=== PATIENT | female | born 2000 | race Caucasian/White ===

== ENCOUNTER 2024-07-13 17:52 | Emergency (ER) | payer OTHER, SELFPAY ==
[2024-07-13 17:54] VITALS: BP 120/83; PULSE 111; RESP 20; TEMP 36.4; O2SAT 99; BMI 25.7
[2024-07-13 18:56] LABS: MANUAL DIFF FLAG NO
[2024-07-13 19:09] LABS: Basophils Percent Auto 0.5 % (0-2); Eosinophils Absolute Auto 0.1 X10*3/uL (0.0-0.4); Hemoglobin 15.2 g/dl (12.0-16.0); Imm Gran Abs Auto 0.02 X10*3/uL (0.00-0.03); Imm Gran Pct Auto 0.3 % (0.0-0.4); Lymphocytes Absolute Auto 1.7 X10*3/uL (1.2-4.9); Mean Corpuscular HGB Conc 34.5 g/dl (31.0-35.0); Mean Corpuscular Hemoglobin 30.8 pg (27.0-33.0); Mean Corpuscular Volume 89.1 fL (80.0-98.0); Mean Platelet Volume 10.2 fL (9.4-12.3); Monocytes Absolute Auto 0.3 X10*3/uL (0.1-1.2); Monocytes Percent Auto 5.9 % (2-11); Neutrophils Absolute Auto 3.6 x10*3/uL (2.0-8.3); Neutrophils Percent Auto 62.3 % (45-73); Platelet Count 288 X10*3/uL (160-400); Red Blood Count 4.94 X10*6/uL (4.20-5.50); Red Cell Distribution Width 12.8 % (11.0-16.0); White Blood Count 5.7 X10*3/uL (4.8-10.8)
[2024-07-13 19:21] LABS: Alanine Aminotransferase 29 U/L (0-31); Albumin Level 4.5 g/dL (3.5-5.0); Alkaline Phosphatase 93 U/L (39-117); Anion Gap 10 (12-20); Aspartate Amino Transferase 26 U/L (5-31); Bilirubin Total 0.4 mg/dL (0.0-1.0); Blood Urea Nitrogen 11 mg/dL (9-16); Calcium 8.6 mg/dL (8.4-10.2); Carbon Dioxide 26 mmol/L (22-29); Chloride 112 mmol/L (96-108); Creatinine Clr Calc Pharmacy 101.1; Estimated Glomerular Filt Rate > 60; Ethanol 274 mg/dL; Glucose Random 97 mg/dL (60-115); Magnesium 2.3 mg/dL (1.6-2.6); Potassium 3.9 mmol/L (3.3-5.1); Sodium 144 mmol/L (135-145); Total Protein 7.4 g/dL (6.5-8.0)
[2024-07-13 19:26] LABS: HCG Quantitative < 2 mIU/mL
[2024-07-13 20:28] LABS: Appearance Urine Clear; Color Urine Yellow; Glucose Urine UA Negative (Negative); Leukocyte Esterase Urine Negative (Negative); Nitrite Urine Negative (Negative); PH 6.5 (5.0-9.0); Urine Blood Negative (Negative); Urine Ketones Negative (Negative); Urine Protein Negative (Neg-Trace)
[2024-07-13 20:37] LABS: Amphetamine Screen Urine Not Detected (Not Detect); Barbiturates, Urine Not Detected (Not Detect); Benzodiazepines Screen Urine Not Detected (Not Detect); Buprenorphine Scr Not Detected (Not Detect); Cannabinoid Screen Urine POSITIVE (Not Detect); Cocaine Screen Urine Not Detected (Not Detect); Fentanyl, urine Not Detected (Not Detect); Methadone Screen, Urine Not Detected (Not Detect); Opiate Screen Urine Not Detected (Not Detect); Oxycodone Screen Urine Not Detected (Not Detect); Phencyclidine Screen Urine Not Detected (Not Detect)
--- NOTE | 2024-07-13 21:33 | ED.PSYCH ---
HPI - Psych General Chief Complaint: Psychiatric Symptoms Stated Complaint: depressed, crisis Time Seen by Provider: 07/13/24 18:54 Source: patient Limitations: no limitations History of Present Illness ED Provider: Connie Harrison PA-C HPI Narrative: 24-year-old female presents with SI. History limited as patient is hostile at times, and is intoxicated. She is not verbalize a specific plan for self-harm. She does say she is increasingly depressed and that she feels sad all the time . She also admits she has been drinking alcohol more frequently. Her father relate to nursing staff that there were recent medication changes within the past few weeks, and that her behaviors have changed since. Related Data Allergies Allergy/AdvReac Type Severity Reaction Status Date / Time Unable to Assess Allergy Verified 07/13/24 18:07 Review of Systems Review of Systems: Unable to obtain as the patient was not wanting to engage in conversation so as to obtain detailed history Yes all other systems are reviewed and are negative [facility] Past Medical History Attestation statement: The following information was validated with the patient. Social History Social History Alcohol intake: current Alcohol intake frequency: a few times a week Alcohol type: beer and hard liquor Smoked in Last 30 Days: Yes Substance Use Type: Marijuana Advance Directives: No Advance Directives Information Provided: No Do you have a plan to hurt others: No Plan Physical Exam Vital Signs: Vital Signs: Last Vital Signs Temp 97.6 F 07/13/24 17:54 Pulse 111 H 07/13/24 17:54 Resp 20 07/13/24 17:54 BP 120/83 07/13/24 17:54 Pulse Ox 99 07/13/24 17:54 O2 Del Method Room Air 07/13/24 17:54 BMI result Body Mass Index 25.7 Const: Other: awake Orientation/consciousness: patient oriented x3 Resp: Effort & Inspection: normal respiratory effort Cardio: Other: normal peripheral perfusion Skin: Other: warm dry no rash Neuro: General: patient oriented x3, gait normal, no focal motor deficits and CN's II-XI intact bilaterally Psych: Other: hostile at times, intoxicated Medical Decision Making Medical Decision Making MDM Narrative: 24-year-old female presents with SI. History limited as patient is hostile at times, and is intoxicated. She is not verbalize a specific plan for self-harm. She does say she is increasingly depressed and that she feels sad all the time . She also admits she has been drinking alcohol more frequently. Her father relate to nursing staff that there were recent medication changes within the past few weeks, and that her behaviors have changed since. problem: Depression, alcohol abuse History: Per patient which is limited I have considered the following differential diagnoses: SI, HI, decompensated psychiatric illness, drug / alcohol intoxication Plan: Once the patient was sober she will be referred to the care team. We will be screening basic labs, serum ethanol and U tox I have independently reviewed the following tests: Labs: No leukocytosis, not anemic, no electrolyte abnormality, not , ethanol 274, drug screen positive for marijuana Lab Data 07/13/24 18:48 07/13/24 18:48 Labs: Lab Results 07/13/24 07/13/24 Range/Units 18:48 20:12 WBC 5.7 (4.8-10.8) X10*3/uL RBC 4.94 (4.20-5.50) X10*6/uL Hgb 15.2 (12.0-16.0) g/dl Hct 44.0 (37.0-47.0) % MCV 89.1 (80.0-98.0) fL MCH 30.8 (27.0-33.0) pg MCHC 34.5 (31.0-35.0) g/dl RDW 12.8 (11.0-16.0) % Plt Count 288 (160-400) X10*3/uL MPV 10.2 (9.4-12.3) fL Immature Gran % (Auto) 0.3 (0.0-0.4) % Neut % (Auto) 62.3 (45-73) % Lymph % (Auto) 30.0 (20-40) % [place] % (Auto) 5.9 (2-11) % Eos % (Auto) 1.0 (0-4) % Baso % (Auto) 0.5 (0-2) % Lymph # (Auto) 1.7 (1.2-4.9) X10*3/uL [place] # (Auto) 0.3 (0.1-1.2) X10*3/uL Eos # (Auto) 0.1 (0.0-0.4) X10*3/uL Baso # (Auto) 0.0 (0.0-0.2) X10*3/uL Abs Immat Gran (auto) 0.02 (0.00-0.03) X10*3/uL Absolute Neuts (auto) 3.6 (2.0-8.3) x10*3/uL Absolute Nucleated RBC 0.000 (0.0-0.012) X10*3/uL Nucleated RBC % (auto) 0.0 (0.0-0.2) /100WBC Sodium 144 (135-145) mmol/L Potassium 3.9 (3.3-5.1) mmol/L Chloride 112 H (96-108) mmol/L Carbon Dioxide 26 (22-29) mmol/L Anion Gap 10 L (12-20) BUN 11 (9-16) mg/dL Creatinine 0.82 (0.5-1.4) mg/dL Estim Creat Clear Calc 101.1 Estimated GFR > 60 Random Glucose 97 (60-115) mg/dL Calcium 8.6 (8.4-10.2) mg/dL Magnesium 2.3 (1.6-2.6) mg/dL Total Bilirubin 0.4 (0.0-1.0) mg/dL AST 26 (5-31) U/L ALT 29 (0-31) U/L Alkaline Phosphatase 93 (39-117) U/L Total Protein 7.4 (6.5-8.0) g/dL Albumin 4.5 (3.5-5.0) g/dL Beta HCG, Quant < 2 mIU/mL Urine Color Yellow Urine Appearance Clear Urine pH 6.5 (5.0-9.0) Ur Specific [place] 1.020 (1.005-1.025) Urine Protein Negative (Neg-Trace) mg/dL Urine Glucose (UA) Negative (Negative) mg/dL Urine Ketones Negative (Negative) mg/dL Urine Blood Negative (Negative) Urine Nitrite Negative (Negative) Ur Leukocyte Esterase Negative (Negative) Urine Opiates Screen Not Detected (Not Detect) Ur Buprenorphine Scrn Not Detected (Not Detect) ng/mL Ur Oxycodone Screen Not Detected (Not Detect) ng/mL Urine Methadone Screen Not Detected (Not Detect) ng/mL Urine Fentanyl Screen Not Detected (Not Detect) Ur Barbiturates Screen Not Detected (Not Detect) Ur Phencyclidine Scrn Not Detected (Not Detect) Ur Amphetamines Screen Not Detected (Not Detect) U Benzodiazepines Scrn Not Detected (Not Detect) Urine Cocaine Screen Not Detected (Not Detect) U Marijuana (THC) Screen POSITIVE H (Not Detect) Ethyl Alcohol 274 mg/dL Discharge Plan Discharge Clinical Impression: Suicidal ideation, Alcohol intoxication Patient Disposition: Still a Patient Interventions: [place]-Suicide Risk Severity Scale Last Done: 07/13/24 18:30 Print Language: Mongolian
[2024-07-14 00:14] VITALS: BP 103/61; PULSE 70; RESP 16; TEMP 36.7; O2SAT 98
--- NOTE | 2024-07-14 07:26 | PC.NURSE ---
ASSUMED CARE OF THIS PT, SLEEPING IN NAD AT THIS TIME, RESP EVEN, NONLABOURED.
[2024-07-14 11:29] VITALS: BP 126/74; PULSE 67; RESP 14; TEMP 36.2; O2SAT 100
[2024-07-14 11:39] VITALS: BP 126/74; PULSE 67; RESP 14; TEMP 36.2; O2SAT 100
--- NOTE | 2024-07-14 11:47 | MHC.CARE ---
Pt placed on alert and a follow up was requested of JAMES
--- NOTE | 2024-07-14 11:57 | MHC.CARE ---
[facility] referral complete
--- NOTE | 2024-07-14 13:48 | MHC.RECOVRN ---
Met with pt in [facility]3 after being cleared by CARE Team to discuss alcohol use. Pt sitting in bed, awake, alert, easily engages in conversation. Pt reports for the past month she has been drinking 4-5 vodka nips (in mixed drinks) most days of the week. Prior to that, pt reports she had been drinking approx once per month. Pt reports family hx AUD. Denies history of withdrawal. Reports dad is supportive. Discussed recovery resources and supports. Provided pt with written resources including information on inpatient and outpatient treatment, TOM, harm reduction, recovery coaching, as well as t/w contact information. Pt plans to review resources and reach out to t/w if needed. Pt declines referrals at this tme.
== END 2024-07-14 11:45 | disposition home or self-care (01) ==
PROVIDERS: Physician Assistant; Emergency Provider Emergency Medicine; PCP Internal Medicine
DX: F10.120 Alcohol abuse with intoxication, uncomplicated (principal); Y90.8 Blood alcohol level of 240 mg/100 ml or more; F32.A Depression, unspecified; R45.851 Suicidal ideations; F12.90 Cannabis use, unspecified, uncomplicated
CPT/HCPCS: 36415; 80053; 80307; 81003; 83735; 84702; 85025; 99284; 99285; S9485

== ENCOUNTER 2025-03-27 21:20 | Emergency (ER) | payer OTHER, SELFPAY ==
[2025-03-27 21:24] VITALS: BP 135/86; PULSE 118; RESP 20; TEMP 36.4; O2SAT 97; BMI 29.1
--- NOTE | 2025-03-27 21:41 | ED_ITS ---
HPI - Alcohol General Chief Complaint: ETOH/Substance Use Stated Complaint: ETOH Time Seen by Provider: 03/27/25 22:10 Source: patient and family ( Father) Mode of arrival: ambulatory Limitations: no limitations History of Present Illness ED Provider: DR. Bhatti HPI narrative: Patient is a 24-year-old female presenting to the ED by private vehicle with her father. Patient is clinically intoxicated. Patient's father reports patient came home from a constitution party intoxicated this evening and during an argument about her intoxication the patient reportedly began making statements of self-harm, describing statements of cutting herself in a bathtub. Patient adamantly denies these statements, however does have a psychiatry history, previous history of self-harm, and is clinically intoxicated. patient is agreeable to stay in the ED for further evaluation who in she is more sober and after medical clearance. Related Data Home Medications ?Medication ?Instructions ?Recorded ?Confirmed escitalopram oxalate 20 mg tablet 20 mg PO DAILY 07/1407/14/24 Allergies Allergy/AdvReac Type Severity Reaction Status Date / Time No Known Allergies Allergy Verified 03/27/25 21:31 Review of Systems 2 Review of Systems: All other systems are reviewed and are negative Constitutional: Reports as per HPI and Reports no additional constitutional complaints Eyes: Reports as per HPI and Reports no additional eye complaints Reports system reviewed and no additional complaints, except as documented Cardiovascular: Reports as per HPI and Reports no additional cardiovascular complaints Respiratory: Reports as per HPI and Reports no additional respiratory complaints Gastrointestinal: Reports as per HPI and Reports no additional gastrointestinal complaints Genitourinary: Reports no additional female genitourinary complaints Musculoskeletal: Reports no additional musculoskeletal complaints Skin/Breast: Reports system reviewed and no additional complaints, except as docu Psychiatric: Reports no additional psychiatric complaints Endocrine: Reports no additional endocrine complaints Hematologic/Lymphatic: Reports no additional hematologic/lymphatic complaints Allergic/Immunologic: Reports no additional allergic/immunologic complaints Reports system reviewed and no additional complaints, except as documented and Reports Abnormal speech present [facility] Social History Social History Alcohol intake: current Alcohol intake frequency: a few times a week Alcohol type: beer and hard liquor Substance Use Type: Marijuana Advance Directives: No Advance Directives Information Provided: No Physical Exam ED Vital Signs: Vital Signs - 24 hr 03/27/25 21:24 03/28/25 00:30 03/28/25 08:46 Temperature 97.6 F 97.5 F 96.3 F L Pulse Rate 118 H 108 H 89 Respiratory Rate 20 20 16 Blood Pressure 135/86 113/66 120/82 Pulse Oximetry 97 98 97 Oxygen Delivery Method Room Air Room Air Room Air BMI result Body Mass Index 29.1 Vital signs have been reviewed and appear to be correct. Blood pressure elevated. Heart rate elevated. Respiratory rate normal. Temperature normal. Oxygen saturation normal. Appearance: Intoxicated, alcohol on breath, Alert. Oriented X3. No acute distress. Head: Normal external exam. Normocephalic. Atraumatic. No Brennan signs noted. No raccoon eyes noted Eyes: PERRLA. EOMI. Conjunctiva and sclera normal. Eyelids normal. ENT: TM's Normal. Pharynx normal. Uvula midline. Moist mucous membranes. No trismus noted. No drooling noted. No muffled voice noted. Neck: Normal inspection. Neck supple. FROM. No adenopathy. Thyroid Normal. No meningeal signs. No neck mass noted. CVS: Normal heart rate and rhythm. Heart sound normal. No murmurs noted. Pulses normal throughout. Respiratory: No respiratory distress. Painless inspiration. Breath sounds normal. No wheezes/rales/rhonchi noted. Chest nontender. No accessory muscle usage noted or decreased air movement noted. Abdomen: Soft and nontender. Bowel sounds normal in all 4 quadrants. No distention noted. No organomegaly noted. No visible injury noted. Back: No CVA tenderness. Full range of motion noted. Skin: Skin warm and dry. Normal skin color. Normal skin turgor. No rashes/lesions/lacerations noted. Extremities: No lower extremity edema. Extremities exhibit normal range of motion. Extremities nontender. Neuro: Oriented X 3. Cranial nerve exam: II-XII are grossly intact No motor deficit. No sensory deficit. Reflexes normal. Course Course Course Narrative: 9:41 PM 03/27/2025 (Clifton BELLO): Rapid medical examination performed, full details of HPI, MDM, care plan and disposition deferred to primary provider. came in with her father for evaluation of suicidal statement. Reevaluation(s) Reevaluation #1: 24-year-old female intoxicated with SI statement, will will start physician observation, await for patient's sobriety and care team input, patient is medically cleared now. Elevated LFTs likely secondary to alcohol hepatitis. Time: 00:30 Reevaluation #2: Patient was seen by care team Niya who feels as though patient is appropriate for discharge home. Educated patient on diagnosis and treatment plan, answered all question, patient verbalizes understanding. At this time patient will be discharged home, advised to return with new or worsening symptoms. Educated on worrisome signs and symptoms and when to return. At this time I feel comfortable discharge home. At time of discharge she is not SI or HI. Time: 09:41 Medical Decision Making Differential Diagnosis Differential Diagnoses: The differential diagnosis associated with the presentation includes ( Medical clearance, SI, HI, hallucination, electrolyte derangement, severe anemia, alcohol intoxication.) Admission/Observation Consideration of admission/observation: Escalation of care including admission/observation considered Lab Data MDM Lab Attestation statement: I reviewed the patient's lab results. 03/27/25 22:22 03/27/25 22:22 Labs: Lab Results 03/27/25 03/27/25 Range/Units 22:22 22:42 WBC 9.0 (4.8-10.8) X10*3/uL RBC 5.15 (4.20-5.50) X10*6/uL Hgb 15.8 (12.0-16.0) g/dl Hct 45.7 (37.0-47.0) % MCV 88.7 (80.0-98.0) fL MCH 30.7 (27.0-33.0) pg MCHC 34.6 (31.0-35.0) g/dl RDW 13.9 (11.0-16.0) % Plt Count 326 (160-400) X10*3/uL MPV 9.8 (9.4-12.3) fL Immature Gran % (Auto) 0.2 (0.0-0.4) % Neut % (Auto) 66.4 (45-73) % Lymph % (Auto) 24.1 (20-40) % [place] % (Auto) 8.2 (2-11) % Eos % (Auto) 0.4 (0-4) % Baso % (Auto) 0.7 (0-2) % Lymph # (Auto) 2.2 (1.2-4.9) X10*3/uL [place] # (Auto) 0.7 (0.1-1.2) X10*3/uL Eos # (Auto) 0.0 (0.0-0.4) X10*3/uL Baso # (Auto) 0.1 (0.0-0.2) X10*3/uL Abs Immat Gran (auto) 0.02 (0.00-0.03) X10*3/uL Absolute Neuts (auto) 5.9 (2.0-8.3) x10*3/uL Absolute Nucleated RBC 0.000 (0.0-0.012) X10*3/uL Nucleated RBC % (auto) 0.0 (0.0-0.2) /100WBC Sodium 146 H (135-145) mmol/L Potassium 4.3 (3.3-5.1) mmol/L Chloride 110 H (96-108) mmol/L Carbon Dioxide 26 (22-29) mmol/L Anion Gap 14 (12-20) BUN 9 (9-16) mg/dL Creatinine 0.76 (0.5-1.4) mg/dL Estim Creat Clear Calc 119.7 Estimated GFR > 60 Random Glucose 102 (60-115) mg/dL Calcium 8.8 (8.4-10.2) mg/dL Magnesium 2.1 (1.6-2.6) mg/dL Total Bilirubin 0.3 (0.0-1.0) mg/dL Direct Bilirubin 0.1 (0.0-0.5) mg/dL AST 63 H (5-31) U/L ALT 120 H (0-31) U/L Alkaline Phosphatase 120 H (39-117) U/L Total Protein 8.1 H (6.5-8.0) g/dL Albumin 5.1 H (3.5-5.0) g/dL Beta HCG, Quant < 2 mIU/mL Urine Color Yellow Urine Appearance Clear Urine pH 6.5 (5.0-9.0) Ur Specific [place] <= 1.005 (1.005-1.025) Urine Protein Negative (Neg-Trace) mg/dL Urine Glucose (UA) Negative (Negative) mg/dL Urine Ketones Negative (Negative) mg/dL Urine Blood Trace H (Negative) Urine Nitrite Negative (Negative) Ur Leukocyte Esterase Small (1+) H (Negative) Urine RBC 0-2 (0-2) /HPF Urine WBC 0-5 (0-5) /HPF Ur Squamous Epith Cells 3-5 (0-2) /HPF Urine Bacteria Trace (None Seen) Hyaline Casts 0-2 (0-2) /LPF Salicylates < 5.0 L (15-30) mg/dL Urine Opiates Screen Not Detected (Not Detect) Ur Buprenorphine Scrn Not Detected (Not Detect) ng/mL Ur Oxycodone Screen Not Detected (Not Detect) ng/mL Urine Methadone Screen Not Detected (Not Detect) ng/mL Urine Fentanyl Screen Not Detected (Not Detect) Acetaminophen < 3 (<30) mcg/mL Ur Barbiturates Screen Not Detected (Not Detect) Ur Phencyclidine Scrn Not Detected (Not Detect) Ur Amphetamines Screen Not Detected (Not Detect) U Benzodiazepines Scrn Not Detected (Not Detect) Urine Cocaine Screen Not Detected (Not Detect) U Marijuana (THC) Screen POSITIVE H (Not Detect) Ethyl Alcohol 351 H* mg/dL Critical Care Time Critical Care Time Critical Care Time: No Discharge Plan Discharge Clinical Impression: Alcoholic intoxication, Feeling suicidal Patient Disposition: Home, Self-Care Instructions: Abuse of Alcohol (DC) Additional Instructions: You were seen in our Emergency Department today for treatment of a behavioral health issue. It is important after your visit that you follow up with either your behavioral health provider or a primary care doctor within 7 days.? If you have trouble finding a therapist you can reach out to [address] [phone] The National Suicide and Crisis Lifeline can be reached 7 days a week 24 hours a day.? Call 988 to speak with someone.? Return for any worsening symptoms or concerns such as thoughts of self harm or harm to others. Please call 911 if you feel your mental health is worsening.? Prescriptions: No Action escitalopram oxalate 20 mg tablet 20 mg PO DAILY Referrals: Treva Farias MD [Primary Care Provider, Internal Medicine] Print Language: Unable To Collect
[2025-03-27 22:28] LABS: MANUAL DIFF FLAG NO
[2025-03-27 22:29] LABS: Hematocrit 45.7 % (37.0-47.0); Hemoglobin 15.8 g/dl (12.0-16.0); Imm Gran Abs Auto 0.02 X10*3/uL (0.00-0.03); Imm Gran Pct Auto 0.2 % (0.0-0.4); Lymphocytes Absolute Auto 2.2 X10*3/uL (1.2-4.9); Mean Corpuscular HGB Conc 34.6 g/dl (31.0-35.0); Mean Corpuscular Hemoglobin 30.7 pg (27.0-33.0); Mean Corpuscular Volume 88.7 fL (80.0-98.0); NRBC Abs Auto 0.000 X10*3/uL (0.0-0.012); NRBC Pct Auto 0.0 /100WBC (0.0-0.2); Platelet Count 326 X10*3/uL (160-400); Red Blood Count 5.15 X10*6/uL (4.20-5.50); White Blood Count 9.0 X10*3/uL (4.8-10.8)
[2025-03-27 22:44] LABS: Acetaminophen LAB < 3 mcg/mL (<30); Salicylate < 5.0 mg/dL (15-30)
[2025-03-27 22:50] LABS: Alanine Aminotransferase 120 U/L (0-31); Albumin Level 5.1 g/dL (3.5-5.0); Alkaline Phosphatase 120 U/L (39-117); Anion Gap 14 (12-20); Aspartate Amino Transferase 63 U/L (5-31); Blood Urea Nitrogen 9 mg/dL (9-16); Calcium 8.8 mg/dL (8.4-10.2); Carbon Dioxide 26 mmol/L (22-29); Chloride 110 mmol/L (96-108); Creatinine Clr Calc Pharmacy 119.7; Estimated Glomerular Filt Rate > 60; Magnesium 2.1 mg/dL (1.6-2.6); Potassium 4.3 mmol/L (3.3-5.1); Sodium 146 mmol/L (135-145); Total Protein 8.1 g/dL (6.5-8.0)
[2025-03-27 23:05] LABS: Appearance Urine Clear; Glucose Urine UA Negative (Negative); PH 6.5 (5.0-9.0); Specific Gravity - Urine <= 1.005 (1.005-1.025); UMIC TRIGGER UACC YES
[2025-03-27 23:07] LABS: Cannabinoid Screen Urine POSITIVE (Not Detect)
[2025-03-27 23:18] LABS: UACC Culture Trigger YES
[2025-03-28 00:30] VITALS: BP 113/66; PULSE 108; RESP 20; TEMP 36.4; O2SAT 98
[2025-03-28 08:46] VITALS: BP 120/82; PULSE 89; RESP 16; TEMP 35.7; O2SAT 97
--- NOTE | 2025-03-28 08:49 | PC.NURSE ---
Patient stating she wants to go home. Patient made aware that she needs to see Care Team to be evaluated. Patient replies understanding of care plan. Patient resting quietly. medical assistant float present. Safety measures in place.
--- NOTE | 2025-03-28 10:05 | MHC.CARE ---
Pt does not meet the criteria for a higher level of care or present as an imminent risk. Pt was provided with resources on the [facility] and [facility] from the [facility] came to speak with Pt in regard to Naltrexone and AA meetings. ED provider in agreement.
[2025-03-28 10:24] VITALS: BP 120/82; PULSE 89; RESP 16; TEMP 35.7; O2SAT 97
== END 2025-03-28 10:27 | disposition home or self-care (01) ==
PROVIDERS: Emergency Provider Emergency Medicine; PCP Internal Medicine
DX: F10.129 Alcohol abuse with intoxication, unspecified (principal); R45.851 Suicidal ideations; Y90.8 Blood alcohol level of 240 mg/100 ml or more
CPT/HCPCS: 36415; 80053; 80143; 80179; 80307; 81001; 81003; 82248; 83735; 84702; 85025; 87086; 99284; S9485

== ENCOUNTER 2025-04-02 09:39 | Outpatient (AMB) | payer OTHER, SELFPAY ==
[2025-04-02 09:45] VITALS: BP 110/60; PULSE 76; O2SAT 98
--- NOTE | 2025-04-02 09:45 | A.OFFVISCC_ITS ---
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 Denies use of opiates, and other substances, with the exception of smoking cannabis on a daily basis. Reports interested in starting medication to decrease cravings for alcohol. Review of Systems Const All systems reviewed & are unremarkable except as noted in HPI and below Physical Exam Vital Signs: Last Vital Signs Pulse 76 04/02/25 09:45 BP 110/60 04/02/25 09:45 Pulse Ox 98 04/02/25 09:45 BMI result Body Mass Index 30.0 Const General: [facility] Social History Alcohol intake: current Alcohol intake frequency: a few times a week Alcohol type: beer and hard liquor Substance Use Type: Marijuana Assessment & Plan Assessment & Plan (1) Alcohol use: Code(s): F10.90 - Alcohol use, unspecified, uncomplicated Category: Social Hx Plan The plan of care is to start on naltrexone 50 mg, 1/2 tablet for 4 days then 1 tablet daily, thiamine 100 mg, folic acid 1 mg daily. Education provided re: naltrexone, thiamine, and folic acid including purpose, general medication information, and side effects. Risk reduction activities to minimize alcohol consumption and encouraged to attend community resources for additional support. pantograph ii engraver provided additional education, welcome packet, and a referral for a peer lean coach, the patient declined at present time. Medications: New naltrexone Take 1/2 tablet for 4 days then 1 tablet daily. 50 mg PO DAILY 30 tabs 0RF 30 days thiamine mononitrate (vit B1) Take 1 tablet daily 100 mg PO DAILY 90 tabs 0RF 90 days folic acid Take 1 tablet daily 1 mg PO DAILY 90 tabs 0RF 90 days Patient Instructions: - Start on naltrexone, thiamine, and folic acid as prescribed. - Engage in risk reduction activities and attend community resources for additional support. - Follow-up in 1 month or sooner if needed. - Call with questions, concerns, or to report side effects/new onset of symptoms to [facility]. - The patient verbalized understanding and agreed with plan of care. 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 What is your current relationship status?: significant other Current PCP: Dr Farias, [facility] Date of last visit: 03/30/25 Referral Source: Saw pt in our ED on 03/28 Substance Abuse History Substance Abuse History (includes route, frequency and quantity): Alcohol and Marijuana (Daily use, grows own or dispensary.) Age of first use: 16 first use, problematic at 22 Social History Domestic Violence concerns: none Children: no Do you have a support system?: yes Current mode of transportation?: self Where are you currently residing?: [place] LMP: 03/13 Are you using contraception?: Yes (IUD) IV Drug Use Have you ever shared needles?: No Have you ever belonged to a needle exchange program?: No Do you buy needles at a pharmacy?: No Have you ever overdosed?: No Number of lifetime overdoses: 0 Have you ever been hospitalized for an overdose?: No Was Naloxone administered?: Not applicable Recovery History Have you had any periods of recovery?: Yes What is your longest time in recovery?: 1 year When was the last time you were in recovery?: [id number] Have you ever had inpatient treatment for your substance abuse disorder?: No Have you been in an inpatient detoxification program?: No Have you been in an inpatient Rehab/Fpc house?: No Have you been in an outpatient Methadone Maintenance program?: No Have you been in an outpatient Suboxone Maintenance program?: No Have you been in an AA/NA support program?: Yes (Has been to a few meetings in the past; plans to start attending more consistently) Have you had a Recovery Support Vendor Management Specialist?: No Have you had Peer Support?: No (Received information on , not interested at the moment) Behavioral Health History Do you have a current provider? If so, who?: Sees a therapist at primary office when needed or at office for an PCP appointment- not structured diagnosis: Depression History of other addictive behavior: no History of inpatient psychiatric hospitalization? If so, how many? Most Recent? Where?: no History of self harming thoughts?: Yes (at age 16, cutting ) History of homicidal or suicidal intentions?: No Medical Conditions Endocarditis?: No Skin Infection: No Seizure related to withdrawal or overdose: No Head or brain injury: No Hepatitis A (if yes, have you been treated?): No Hepatitis B (if yes, have you been treated?): No Hepatitis C (if yes, have you been treated?): No HIV (if yes, have you been treated?): No TB (if yes, have you been treated?): No Other: No Do you have any chronic pain conditions?: mo Legal History History of incarceration: No Currently on parole or probation: No Court mandated programs: No Pending court cases: No DCF involvement: No
== END 2025-04-02 10:34 | disposition home or self-care (01) ==
LOC: HO.HCC 09:39
PROVIDERS: PCP Internal Medicine; Visit Provider Clinical Nurse Specialist Psychiatric/Mental Health
DX: F10.90 Alcohol use, unspecified, uncomplicated (principal)
CPT/HCPCS: 99203

== ENCOUNTER → 2025-04-02 09:39 | Outpatient (BNVA) | payer OTHER, SELFPAY | PROVIDERS: PCP Internal Medicine; Visit Provider Clinical Nurse Specialist Psychiatric/Mental Health | DX: F10.90 Alcohol use, unspecified, uncomplicated (principal); Y90.9 Presence of alcohol in blood, level not specified | CPT/HCPCS: 99202 ==